=== PATIENT | female | born 1960 | race Caucasian/White ===

== ENCOUNTER 2019-02-04 13:16 | Inpatient (IN) | payer BC ==
[2019-02-04 14:58] LABS: WHITE BLOOD COUNT 7.5 10^3/ul (4.8-10.8)
[2019-02-04 14:58] LABS: ADD MAN DIFF? NO; BASOPHILS % 0.4 % (0.0-2.0); EOSINOPHILS % 0.5 % (0.0-7.0); HEMATOCRIT 41.5 % (37.0-47.0); HEMOGLOBIN 13.8 g/dl (12.0-16.0); LYMPHOCYTES # 1.5 10^3/ul (0.8-2.9); LYMPHOCYTES % 19.9 % (15.0-51.0); MEAN CORPUSCULAR HEMOGLOBIN 30.7 pg (29.0-33.0); MEAN CORPUSCULAR HGB CONC 33.3 g/dl (32.0-37.0); MEAN CORPUSCULAR VOLUME 92.4 fl (82.0-101.0); MEAN PLATELET VOLUME 11.1 fl (7.4-10.4); MONOCYTE # 0.4 10^3/ul (0.3-0.9); MONOCYTES % 4.7 % (0.0-11.0); NEUTROPHIL # 5.6 10^3/ul (1.6-7.5); NEUTROPHILS % 74.2 % (39.0-77.0); PLATELET COUNT 195 10^3/UL (140-415); RED BLOOD COUNT 4.49 10^6/ul (4.20-5.40); RED CELL DISTRIBUTION WIDTH 13.3 % (11.5-14.5)
[2019-02-04 15:14] LABS: ANION GAP 10 (5-13); BLOOD UREA NITROGEN 15 mg/dl (7-20); CALCIUM 9.4 mg/dl (8.4-10.2); CARBON DIOXIDE 25 mmol/L (21-31); CHLORIDE 104 mmol/L (97-110); CREATININE 0.71 mg/dl (0.44-1.00); Estimated GFR > 60 mL/min (>60); GLUCOSE 113 mg/dl (70-220); POTASSIUM 3.8 mmol/L (3.5-5.1); SODIUM 139 mmol/L (135-144)
[2019-02-04 15:17] LABS: INR 0.96; PROTIME 12.9 Sec (11.9-14.9)
[2019-02-04 15:18] LABS: PARTIAL THROMBOPLASTIN TIME 32.4 Sec (23.0-35.0)
[2019-02-04] MEDS ORDERED: ONDANSETRON 4 MG INJ (16:00)
[2019-02-04] MEDS ORDERED: METOCLOPRAMIDE 10 MG INJ (16:00)
[2019-02-04] MEDS ORDERED: LIDOCAINE 2% (SDV) 5 ML INJ (16:09)
[2019-02-04] MEDS ORDERED: PROPOFOL 20 ML (16:09)
[2019-02-04] MEDS ORDERED: SUCCINYLCHOLINE CHLORIDE 100 MG/5 ML SYG IV (16:09)
[2019-02-04] MEDS ORDERED: ROCURONIUM 50 MG INJ ×2 (16:09→17:13)
[2019-02-04] MEDS ORDERED: NEOSTIGMINE 3 MG/3 ML SYRINGE (16:09)
[2019-02-04] MEDS ORDERED: GLYCOPYRROLATE 0.4 MG INJ (16:09)
[2019-02-04] MEDS ORDERED: CEFAZOLIN 1 GM INJ (16:28)
[2019-02-04] MEDS ORDERED: EPHEDrine 25 MG/5 ML SYG (17:31)
[2019-02-04] MEDS ORDERED: HYDROmorphONE 1 MG/5 ML IV SYRINGE IV (18:00)
[2019-02-04] MEDS ORDERED: OXYCODONE/ACETAMINOPHEN (5/325) TAB PO ×2 (18:00)
[2019-02-04] MEDS ORDERED: hydrALAzine 20 MG INJ IV (18:00)
[2019-02-04] MEDS ORDERED: EPHEDrine 25 MG/5 ML SYG IV (18:00)
[2019-02-04] MEDS ORDERED: MIDAZOLAM 1 MG/ML 2 ML INJ IV (18:00)
[2019-02-04] MEDS ORDERED: METOCLOPRAMIDE 10 MG INJ IV (18:00)
[2019-02-04] MEDS ORDERED: FENTAnyl 50 MCG/ML VIAL IV ×2 (18:00)
[2019-02-04] MEDS ORDERED: DIPHENHYDRAMINE 50 MG INJ IV (18:00)
[2019-02-04] MEDS ORDERED: LABETALOL HCL 20MG INJ IV (18:00)
[2019-02-04] MEDS ORDERED: FENTAnyl 50 MCG/ML VIAL (18:09)
[2019-02-04] MEDS: BUPIVACAINE 0.25%/EPI (SDV) 30 ML INJ (18:19)
[2019-02-04] MEDS: SILVER NITRATE SWAB (19:21)
[2019-02-04] MEDS: HYDROmorphONE 1 MG/5 ML IV SYRINGE IV ×2 (20:07→20:17)
[2019-02-04] MEDS: ONDANSETRON 4 MG INJ IV (20:08)
[2019-02-04] MEDS: MEPERIDINE 25 MG INJ IV (20:08)
[2019-02-04] MEDS: FENTAnyl 50 MCG/ML VIAL IV ×2 (20:08→20:18)
[2019-02-04] MEDS: HYDROmorphONE 0.2 MG/ML PCA IV (21:06)
[2019-02-04 21:57] LABS: ADD UMIC YES; UR ASCORBIC ACID 20 mg/dL (NEGATIVE); UR BILIRUBIN (Dip) NEGATIVE (NEGATIVE); UR BLOOD (Dip) 2+ mg/dL (NEGATIVE); UR CLARITY SLIGHTLY CLOUDY (CLEAR); UR COLOR YELLOW (YELLOW); UR GLUCOSE (Dip) NEGATIVE (NEGATIVE); UR KETONES (Dip) NEGATIVE (NEGATIVE); UR LEUKOCYTE ESTERASE (Dip) NEGATIVE Leu/ul (NEGATIVE); UR MUCUS FEW /HPF (NONE SEEN); UR NITRITE (Dip) NEGATIVE (NEGATIVE); UR RBC 157 /HPF (0-5); UR SPECIFIC GRAVITY (Dip) 1.011 (1.003-1.030); UR TOTAL PROTEIN (Dip) NEGATIVE (NEGATIVE); UR UROBILINOGEN (Dip) NEGATIVE (NEGATIVE); UR WBC 2 /HPF (0-5)
[2019-02-04] MEDS: LACTATED RINGER'S 1,000 ML IV (22:45)
[2019-02-05] MEDS: LACTATED RINGER'S 1,000 ML IV ×3 (04:35→21:35)
[2019-02-05] MEDS: CLINDAMYCIN 900 MG/D5W (PMX) 50 ML IVPB ×3 (06:00→17:32)
[2019-02-05] MEDS ORDERED: GENTAMICIN 80 MG INJ IM (06:00)
[2019-02-05] MEDS ORDERED: GENTAMICIN 80 MG INJ IVPB ×2 (07:00→14:00)
[2019-02-05] MEDS ORDERED: GENTAMICIN 80 MG/NS (PMX) 50 ML IVPB ×2 (07:00→14:00)
[2019-02-05] MEDS: GENTAMICIN 80 MG/NS (PMX) 50 ML IVPB ×3 (07:54→23:27)
[2019-02-05] MEDS ORDERED: HYDROCODONE/APAP (5/325) TAB PO (10:30)
[2019-02-05] MEDS ORDERED: HYDROmorphONE 0.2 MG/ML PCA IV (10:30)
[2019-02-05] MEDS ORDERED: NALOXONE (0.4 MG/ML) INJ IV (10:30)
[2019-02-05] MEDS ORDERED: OXYCODONE/ACETAMINOPHEN (5/325) TAB PO ×2 (10:30)
[2019-02-05] MEDS ORDERED: ONDANSETRON 4 MG INJ IV (10:30)
[2019-02-05] MEDS ORDERED: DIPHENHYDRAMINE 50 MG INJ IV (10:30)
[2019-02-05] MEDS: ONDANSETRON 4 MG INJ IV (15:58)
[2019-02-05] MEDS: MAGNESIUM HYDROXIDE 30ML CUP PO (17:22)
[2019-02-05] MEDS: HYDROCODONE/APAP (5/325) TAB PO ×2 (17:23→21:35)
[2019-02-05 22:37] LABS: GENTAMICIN,TROUGH 1.5 ug/ml (1.0-2.0)
[2019-02-05] MEDS: IBUPROFEN 400 MG TAB PO (23:26)
[2019-02-06] MEDS: CLINDAMYCIN 900 MG/D5W (PMX) 50 ML IVPB ×3 (01:16→12:00)
[2019-02-06] MEDS: LACTATED RINGER'S 1,000 ML IV ×2 (05:03→13:03)
[2019-02-06] MEDS: HYDROCODONE/APAP (5/325) TAB PO ×3 (06:14→16:30)
[2019-02-06] MEDS: IBUPROFEN 400 MG TAB PO ×3 (06:14→23:04)
[2019-02-06] MEDS: GENTAMICIN 80 MG/NS (PMX) 50 ML IVPB ×2 (07:07→16:10)
[2019-02-06] MEDS: ONDANSETRON 4 MG INJ IV (10:20)
[2019-02-06] MEDS: MAGNESIUM HYDROXIDE 30ML CUP PO (16:45)
[2019-02-06] MEDS: MULTIVITAMINS/MINERALS TAB PO (18:00)
[2019-02-06] MEDS: MULTIVITAMINS 30 ML CUP PEG (18:30)
[2019-02-06 18:45] LABS: ADD MAN DIFF? NO
[2019-02-06 18:48] LABS: WHITE BLOOD COUNT 6.2 10^3/ul (4.8-10.8)
[2019-02-06 18:48] LABS: BASOPHILS % 0.3 % (0.0-2.0); EOSINOPHILS % 0.5 % (0.0-7.0); HEMATOCRIT 34.6 % (37.0-47.0); HEMOGLOBIN 11.1 g/dl (12.0-16.0); LYMPHOCYTES # 1.2 10^3/ul (0.8-2.9); LYMPHOCYTES % 18.5 % (15.0-51.0); MEAN CORPUSCULAR HEMOGLOBIN 30.7 pg (29.0-33.0); MEAN CORPUSCULAR HGB CONC 32.1 g/dl (32.0-37.0); MEAN CORPUSCULAR VOLUME 95.6 fl (82.0-101.0); MEAN PLATELET VOLUME 11.3 fl (7.4-10.4); MONOCYTE # 0.4 10^3/ul (0.3-0.9); MONOCYTES % 6.6 % (0.0-11.0); NEUTROPHIL # 4.6 10^3/ul (1.6-7.5); NEUTROPHILS % 73.8 % (39.0-77.0); PLATELET COUNT 143 10^3/UL (140-415); RED BLOOD COUNT 3.62 10^6/ul (4.20-5.40); RED CELL DISTRIBUTION WIDTH 13.5 % (11.5-14.5)
[2019-02-06 19:14] LABS: ALANINE AMINOTRANSFERASE 23 IU/L (13-69); ALBUMIN 2.9 g/dl (3.3-4.9); ALBUMIN/GLOBULIN RATIO 1.16; ALKALINE PHOSPHATASE 44 IU/L (42-121); ANION GAP 2 (5-13); ASPARTATE AMINO TRANSFERASE 17 IU/L (15-46); BILIRUBIN,INDIRECT 0.4 mg/dl (0-1.1); BILIRUBIN,TOTAL 0.4 mg/dl (0.2-1.3); BLOOD UREA NITROGEN 6 mg/dl (7-20); CALCIUM 8.3 mg/dl (8.4-10.2); CARBON DIOXIDE 33 mmol/L (21-31); CHLORIDE 102 mmol/L (97-110); CREATININE 0.68 mg/dl (0.44-1.00); Estimated GFR > 60 mL/min (>60); GLUCOSE 117 mg/dl (70-220); POTASSIUM 3.7 mmol/L (3.5-5.1); SODIUM 137 mmol/L (135-144); TOTAL PROTEIN 5.4 g/dl (6.1-8.1)
[2019-02-06] MEDS ORDERED: MENTHOL/METH SALICYLATE OINT TOP (19:30)
[2019-02-06] MEDS: DOCUSATE SODIUM 100 MG CAP PO (21:09)
[2019-02-06] MEDS ORDERED: SPECIAL NON-STANDARD MEDICATION (BULK) TOP (21:30)
[2019-02-07] MEDS: IBUPROFEN 400 MG TAB PO ×3 (05:42→20:35)
[2019-02-07] MEDS: MAGNESIUM HYDROXIDE 30ML CUP PO ×2 (05:44→20:34)
[2019-02-07] MEDS: METHYLPHENIDATE 5 MG TAB PO (09:00)
[2019-02-07] MEDS: MULTIVITAMINS 30 ML CUP PEG (09:00)
[2019-02-07] MEDS: MULTIVITAMINS/MINERALS TAB PO (09:00)
[2019-02-07] MEDS: DOCUSATE SODIUM 100 MG CAP PO ×2 (09:03→20:28)
[2019-02-07] MEDS: LACTOBACILLUS RHAMNOSUS CAP PO ×2 (12:10→20:28)
[2019-02-07] MEDS ORDERED: LACTOBACILLUS RHAMNOSUS CAP PO (21:00)
[2019-02-08] MEDS ORDERED: POLYETHYLENE GLYCOL 17 GM PACKET PO (09:00)
== END 2019-02-07 21:45 | disposition home or self-care (01) | DRG 742 ==
LOC: REC 13:16 → MS1 21:27
PROC: 0UT9FZZ Resection of Uterus, Via Natural or Artificial Opening With Percutaneous Endoscopic Assistance (ICD-10-PCS; principal; 2019-02-04 16:10)
PROC: 0UB00ZZ Excision of Right Ovary, Open Approach (ICD-10-PCS; 2019-02-04 16:10)
PROC: 0WQF0ZZ Repair Abdominal Wall, Open Approach (ICD-10-PCS; 2019-02-04 16:10)
PROC: 0UT50ZZ Resection of Right Fallopian Tube, Open Approach (ICD-10-PCS; 2019-02-04 16:10)
DX: D25.1 Intramural leiomyoma of uterus (principal); N83.53 Torsion of ovary, ovarian pedicle and fallopian tube; K56.0 Paralytic ileus; E46 Unspecified protein-calorie malnutrition; Z68.1 Body mass index [BMI] 19.9 or less, adult; N94.89 Other specified conditions associated with female genital organs and menstrual cycle; R10.2 Pelvic and perineal pain; K43.9 Ventral hernia without obstruction or gangrene; Z72.0 Tobacco use; D25.2 Subserosal leiomyoma of uterus; N83.201 Unspecified ovarian cyst, right side; K59.00 Constipation, unspecified; K57.90 Diverticulosis of intestine, part unspecified, without perforation or abscess without bleeding; N95.2 Postmenopausal atrophic vaginitis; D64.9 Anemia, unspecified; R39.198 Other difficulties with micturition
CPT/HCPCS: 74018; 80048; 80053; 80170; 81001; 85025; 85610; 85730; 86850; 86900; 86901; 87086; 88104; 88305